=== PATIENT | male | born 1960 | race African-American/Black ===

== ENCOUNTER 2023-08-23 08:25 | Emergency (ER) | payer MEDICAID, OTHER ==
[~2023-08-23] VITALS: Ht 175.3 cm; Wt 83.0 kg
[2023-08-23 08:28] VITALS: O2SAT 96
[2023-08-23 11:05] VITALS: BP 130/84; PULSE 92; RESP 19; TEMP 98
== END 2023-08-23 11:18 | disposition home or self-care (01) ==
LOC: ER 08:36
DX: M17.0 Bilateral primary osteoarthritis of knee (principal); J44.1 Chronic obstructive pulmonary disease with (acute) exacerbation; I10 Essential (primary) hypertension; Z90.49 Acquired absence of other specified parts of digestive tract; Z98.890 Other specified postprocedural states; W18.11XA Fall from or off toilet without subsequent striking against object, initial encounter; Y93.9 Activity, unspecified; Y92.89 Other specified places as the place of occurrence of the external cause; Y99.8 Other external cause status
CPT/HCPCS: 73562; 99283

== ENCOUNTER 2024-01-28 10:26 | Emergency (ER) | payer OTHER ==
[~2024-01-28] VITALS: Ht 180.3 cm; Wt 73.0 kg
[2024-01-28 10:29] VITALS: O2SAT 100
[2024-01-28 10:55] LABS: BASOPHILS % 0.8 % (0.0-2.0); EOSINOPHILS % 3.5 % (0.0-5.0); HEMATOCRIT. 40.8 % (42.0-52.0); HEMOGLOBIN. 13.7 g/dL (14.0-18.0); LYMPHOCYTES % 28.3 % (20.0-50.0); MEAN CORPUSCULAR HEMOGLOBIN 31.1 pg (28.0-32.0); MEAN CORPUSCULAR HGB CONC 33.7 g/dL (31.0-37.0); MEAN CORPUSCULAR VOLUME 92.3 fL (80.0-94.0); MEAN PLATELET VOLUME 8.3 fl (7.4-10.4); MONOCYTES % 11.1 % (2.0-8.0); NEUTROPHILS % 56.3 % (40.0-76.0); PLATELET 222 x1000/uL (130-400); RED BLOOD CELL COUNT 4.42 mill/uL (4.7-6.1); RED CELL DISTRIBUTION WIDTH 14.6 % (11.6-14.6); WHITE BLOOD COUNT 3.1 x1000/uL (4.5-11.0)
[2024-01-28] MEDS: ASPIRIN 325MG TABLET PO ONE (10:56)
[2024-01-28 11:13] LABS: CHLORIDE 107 mEq/L (98-107); POTASSIUM 3.9 mEq/L (3.5-5.1)
[2024-01-28 11:14] LABS: CARBON DIOXIDE 27 mEq/L (21-32); SODIUM 139 mEq/L (136-145)
[2024-01-28 11:15] LABS: CALCIUM 9.2 mg/dL (8.7-10.4)
[2024-01-28 11:20] LABS: CREATININE 0.9 mg/dL (0.6-1.3); GLUCOSE 87 mg/dL (70-105); UREA NITROGEN BLOOD 9 mg/dL (9-23)
[2024-01-28 11:21] LABS: TROPONIN I HIGH SENSITIVITY < 4 ng/L (3.0-53)
[2024-01-28 12:29] VITALS: TEMP 97.8
[2024-01-28 13:58] VITALS: BP 118/62; PULSE 77; RESP 16
== END 2024-01-28 13:59 | disposition short-term general hospital (02) ==
LOC: ER 10:33
DX: R07.9 Chest pain, unspecified (principal); J44.1 Chronic obstructive pulmonary disease with (acute) exacerbation; I10 Essential (primary) hypertension; Z98.890 Other specified postprocedural states; Z90.49 Acquired absence of other specified parts of digestive tract
CPT/HCPCS: 80048; 85025; 84484; 36415; 71045; 93005; 99285; Z7610 ×3

== ENCOUNTER 2024-04-23 16:27 | Emergency (ER) | payer OTHER ==
[~2024-04-23] VITALS: Ht 182.9 cm; Wt 82.0 kg
[2024-04-23 16:35] VITALS: BP 106/69; PULSE 104; RESP 16; TEMP 98.7; O2SAT 100
[2024-04-23] MEDS ORDERED: TETANUS, DIPHTHERIA, PERTUSSIS VAC/PF 0.5ML (>10YR OLD) IM ONE (18:00)
[2024-04-23] MEDS ORDERED: LIDOCAINE HCL/EPINEPHRINE 1%-EPI 1:100,000 20ML VIAL INFIL ONE (18:00)
== END 2024-04-23 18:59 ==
LOC: ER 16:27
DX: S01.112A Laceration without foreign body of left eyelid and periocular area, initial encounter (principal); E78.00 Pure hypercholesterolemia, unspecified; Z98.890 Other specified postprocedural states; Z86.59 Personal history of other mental and behavioral disorders; W18.30XA Fall on same level, unspecified, initial encounter; Y93.89 Activity, other specified; Y92.89 Other specified places as the place of occurrence of the external cause; Y99.8 Other external cause status
CPT/HCPCS: 99283

== ENCOUNTER 2024-04-23 23:07 | Emergency (ER) | payer OTHER ==
[~2024-04-23] VITALS: Ht 188 cm; Wt 80.0 kg
[2024-04-23 23:08] VITALS: O2SAT 98
[2024-04-24] MEDS: TETANUS, DIPHTHERIA, PERTUSSIS VAC/PF 0.5ML (>10YR OLD) IM ONE (00:15)
[2024-04-24 04:00] VITALS: BP 133/65; PULSE 77; RESP 19; TEMP 36.44736; O2SAT 99
[2024-04-24] MEDS: LIDOCAINE HCL/PF 1% 10 MG/ML 5ML VIAL INFIL ONE (04:22)
[2024-04-24] MEDS: BACITRACIN ZINC OINT UDPKT TOP ONE (04:22)
== END 2024-04-24 04:55 | disposition home or self-care (01) ==
LOC: ER 23:07
DX: S06.0X0A Concussion without loss of consciousness, initial encounter (principal); S01.112A Laceration without foreign body of left eyelid and periocular area, initial encounter; E78.00 Pure hypercholesterolemia, unspecified; W01.0XXA Fall on same level from slipping, tripping and stumbling without subsequent striking against object, initial encounter; Y92.480 Sidewalk as the place of occurrence of the external cause; Y92.89 Other specified places as the place of occurrence of the external cause; Y99.8 Other external cause status
CPT/HCPCS: 12013; 99284; 70450; J3490; Z7610

== ENCOUNTER 2024-04-25 21:43 | Emergency (ER) | payer OTHER ==
[~2024-04-25] VITALS: Ht 175.3 cm; Wt 70.0 kg
[2024-04-25 21:54] VITALS: O2SAT 99
[2024-04-26 03:20] VITALS: BP 136/78; PULSE 84; RESP 15; TEMP 36.66960; O2SAT 97
== END 2024-04-26 03:23 | disposition home or self-care (01) ==
LOC: ER 21:43
DX: S01.81XA Laceration without foreign body of other part of head, initial encounter (principal); E11.9 Type 2 diabetes mellitus without complications; F31.9 Bipolar disorder, unspecified; Y08.89XA Assault by other specified means, initial encounter; Y93.89 Activity, other specified; Y92.89 Other specified places as the place of occurrence of the external cause; Y99.8 Other external cause status
CPT/HCPCS: 12001; 99284; 71045; 70450; Z7610

== ENCOUNTER 2024-05-12 16:19 | Emergency (ER) | payer OTHER ==
[~2024-05-12] VITALS: Ht 180.3 cm; Wt 72.0 kg
[~2024-05-12 16:19] MED LIST: ACET325T52 MT
[2024-05-12 16:22] VITALS: O2SAT 98
[2024-05-12] MEDS ORDERED: TOPUD MT (18:52)
[2024-05-12] MEDS ORDERED: IBUP-1523 MT (18:52)
[2024-05-12 19:05] VITALS: BP 125/80; PULSE 85; RESP 18; TEMP 36.89184; O2SAT 98
== END 2024-05-12 19:06 | disposition home or self-care (01) ==
LOC: ER 16:19
DX: S50.312A Abrasion of left elbow, initial encounter (principal); E11.9 Type 2 diabetes mellitus without complications; I10 Essential (primary) hypertension; E78.00 Pure hypercholesterolemia, unspecified; Z86.73 Personal history of transient ischemic attack (TIA), and cerebral infarction without residual deficits; W18.39XA Other fall on same level, initial encounter; Y93.89 Activity, other specified; Y92.89 Other specified places as the place of occurrence of the external cause; Y99.8 Other external cause status
CPT/HCPCS: 71045; 73030; 73090; 73130; 99284

== ENCOUNTER 2024-05-12 20:07 | Emergency (ER) | payer OTHER ==
[~2024-05-12] VITALS: Ht 182.9 cm; Wt 82.0 kg
[~2024-05-12 20:07] MED LIST changes: +IBUP-1523 MT; +TOPUD MT
[2024-05-12 20:45] VITALS: BP 137/83; PULSE 96; RESP 18; TEMP 98.5; O2SAT 99
== END 2024-05-12 22:58 | disposition home or self-care (01) ==
LOC: ER 20:07
DX: G89.29 Other chronic pain (principal); M25.561 Pain in right knee
CPT/HCPCS: 99281